=== PATIENT | female | born 2005 | race Caucasian/White ===

== ENCOUNTER 2023-01-28 00:23 | Emergency (ER) | payer BC ==
[2023-01-28] MEDS ORDERED: Boostrix 0.5 ML (Tdap) VIAL (>/=7 yrs of age) ONE (00:47)
[2023-01-28] MEDS ORDERED: Bupivacaine 0.25% 10 ML VIAL ONE (00:47)
[2023-01-28] MEDS ORDERED: Lidocaine 1% w/Epinephrine 1:100K 20 ML VIAL ONE (02:37)
== END 2023-01-28 03:28 | disposition home or self-care (01) ==
LOC: ERS 00:23
DX: S01.01XA Laceration without foreign body of scalp, initial encounter (principal); Z23 Encounter for immunization; W22.8XXA Striking against or struck by other objects, initial encounter
CPT/HCPCS: 12001; 70450; 90471; 90715; S0020